=== PATIENT | female | born 1950 | race Caucasian/White ===

== ENCOUNTER 2017-04-25 09:00 | Emergency (ER) | payer MEDICARE, BC ==
[2017-04-25] MEDS ORDERED: EPINEPHrine 1 MG/ML 30 ML MDV IVPUSH ONE ×2 (09:11→09:20)
[2017-04-25] MEDS ORDERED: EPINEPHrine 1:10,000 1 MG/10 ML Syringe IV ONE ×2 (09:11→09:20)
[2017-04-25] MEDS ORDERED: Sodium Chloride 0.9% 300 ML IV ONE (09:12)
[2017-04-25] MEDS ORDERED: Sodium Chloride 0.9% 500 ML IV ONE (09:16)
[2017-04-25] MEDS ORDERED: Sodium Bicarbonate 8.4% 50 MEQ/50 ML Syringe IVPUSH ONE (09:16)
[2017-04-25] MEDS ORDERED: Sodium Bicarbonate 8.4% 50 MEQ/50 ML Syringe IV ONE (09:16)
[2017-04-25] MEDS ORDERED: Lidocaine 4% Top Soln 50 ML Bottle MUCMEM ONE (10:03)
[2017-04-25] MEDS ORDERED: Ketorolac 60 MG/2 ML SDV IM ONE (10:03)
--- NOTE | 2017-04-25 10:34 | EDM.PDOC ---
ED HPI GENERAL MEDICAL PROBLEM - General Chief Complaint: CPR in Progress Stated Complaint: [facility] Time Seen by Provider: 04/25/17 09:05 Source of Information: Reports: EMS Notes Reviewed, Family History Limitations: Reports: Altered Mental Status, Other (pt was intubated and unresponsive. ) - History of Present Illness INITIAL COMMENTS - FREE TEXT/NARRATIVE: pt got up this am well and she was getting breakfast. She went up to the BR and her sig other heard her with some noisy resp. She was found totally unresponsive. He called 911 and pulled her from the BR and started cpr. He thought she looked pinker when the cpr was started. She never did respond to him. Onset: Today, Sudden Duration: Minutes: Location: Reports: Chest Associated Symptoms: Reports: Other (The pt did not complain of any symptoms. This was a sudden arrest. ) - Related Data Allergies Allergy/AdvReac Type Severity Reaction Status Date / Time meperidine HCl [From Demerol] Allergy Itching Verified 12/30/15 11:31 eye drops Allergy Rash Uncoded 12/30/15 11:31 Home Meds: Home Meds Citalopram Hydrobromide [Citalopram HBr] 20 mg PO DAILY 03/23/15 [History] Cyanocobalamin (Vitamin B-12) [Cyanocobalamin Injection] 1,000 mcg IM Q14D 03/23 [History] Levothyroxine Sodium [Tirosint] 100 mcg PO DAILY 03/23/15 [History] Omeprazole [priLOSEC OTC] 20 mg PO DAILY #60 tab.sr 10/09/15 [Rx] Acetaminophen [Tylenol] 650 mg PO DAILY PRN 12/30/15 [History] Citalopram [Citalopram HBr] 20 mg PO DAILY tablet 01/01/16 [Rx] Multivitamin [Multi-Vitamin Daily] 1 each PO BID #0 01/01/16 [Rx] Ondansetron [Zofran ODT] 4 mg PO Q6H PRN #30 tab.dis 01/01/16 [Rx] Acetaminophen [Tylenol] 650 mg PO Q4H PRN #0 tablet 01/02/16 [Rx] Acetaminophen/HYDROcodone [[place] 325-5 MG] 1 - 2 tab PO Q4H PRN #10 tablet 01/01 [Rx] Past Medical History HEENT History: Reports: Impaired Vision, Macular Degeneration Gastrointestinal History: Reports: Other (See Below) Other Gastrointestinal History: black tarry stools x 3 years [employer] History: Reports: Fibroids, Musculoskeletal History: Reports: Arthritis Psychiatric History: Reports: Depression Endocrine/Metabolic History: Reports: Other (See Below) Other Endocrine/Metabolic History: Thyroid disease Hematologic History: Reports: Anemia, B12 Deficiency, Blood Transfusion(s), Iron Deficiency - Infectious Disease History Infectious Disease History: Reports: Chicken Pox, Measles, Mumps - Past Surgical History GI Surgical History: Reports: Appendectomy, Bariatric Procedure, Colonoscopy, EGD, Other (See Below) Female Surgical History: Reports: Hysterectomy, Salpingo-Oophorectomy Social & Family History - Family History Cardiac: Reports: [place] Endocrine/Metabolic: Reports: Diabetes, type II, Hypothyroidism Oncologic: Reports: Breast, Other (See Below) Other Oncologic Family History: bile duct - Tobacco Use Smoking Status *Q: Unknown Ever Smoked Years of Tobacco use: 25 Packs/Tins Daily: 2 Used Tobacco, but Quit: Yes Month Tobacco Last Used: september Second Hand Smoke Exposure: No - Alcohol Use Days Per Week of Alcohol Use: 7 Number of Drinks Per Day: 3 Total Drinks Per Week: 21 - Recreational Drug Use Recreational Drug Use: No ED ROS GENERAL - Review of Systems Review Of Systems: See Below Constitutional: Reports: No Symptoms HEENT: Reports: No Symptoms Respiratory: Reports: No Symptoms Cardiovascular: Reports: No Symptoms, Other ( Pt had a sudden cardiopulmonry arrest while on the tolet stool. ) Endocrine: Reports: No Symptoms GI/Abdominal: Reports: No Symptoms : Reports: No Symptoms Musculoskeletal: Reports: No Symptoms Skin: Reports: No Symptoms Neurological: Reports: Other (pt was totally unresponsive. ) ED EXAM, GENERAL - Physical Exam Exam: See Below Free Text/Narrative:: pt arrived intubated with a earl tube and having cardiac massage with the alexia. She had a rhythm which she was not perfusing with. Her o2 was in the 90s. . Her bp was in the 120 range. Her color looked fair. Exam Limited By: Other (pt was unresponsive.) Course - Orders/Labs/Meds Labs: Laboratory Tests 04/25/17 04/25/17 04/25/17 Range/Units 09:18 09:18 09:18 WBC 7.6 (4.5-11.0) K/uL RBC 4.38 (3.30-5.50) M/uL Hgb 13.8 (12.0-15.0) g/dL Hct 42.3 (36.0-48.0) % MCV 97 (80-98) fL MCH 32 H (27-31) pg MCHC 33 (32-36) % Plt Count 200 (150-400) K/uL Neut % (Auto) 31 L (36-66) % Lymph % (Auto) 62 H (24-44) % [place] % (Auto) 5 (2-6) % Eos % (Auto) 1 L (2-4) % Baso % (Auto) 1 (0-1) % PT (9.5-12.0) sec INR (0.80-1.20) APTT (27.0-36.0) sec Puncture Site Lt radial ABG pH 7.044 L* (7.350-7.450) ABG pCO2 52.6 H (35.0-42.0) mmHg ABG pO2 90.6 (75.0-100.0) mmHg ABG HCO3 13.7 L (22.0-26.0) mmol/L ABG Total CO2 13.5 L (21.0-25.0) mmol/L ABG O2 Saturation 90.3 L (95.0-98.0) % ABG O2 Content 17.4 (15.0-23.0) %vol ABG Base Excess -17.3 mm/L ABG Hemoglobin 13.8 (12.0-16.0) g/dL ABG Oxyhemoglobin 89.8 % ABG Carboxyhemoglobin -0.2 L (0.0-1.6) % ABG Methemoglobin 0.7 % Eric Test Not performed O2 Delivery Device Resuscitation bag Oxygen Flow Rate L Sodium 142 (140-148) mmol/L Potassium 5.0 (3.6-5.2) mmol/L Chloride 108 (100-108) mmol/L Carbon Dioxide 17 L (21-32) mmol/L Anion Gap 22.0 H (5.0-14.0) mmol/L BUN 14 (7-18) mg/dL Creatinine 1.0 (0.6-1.0) mg/dL Est Cr Clr Drug Dosing TNP Estimated GFR (MDRD) 55 L (>60) Glucose 431 H* (74-106) mg/dL Calcium 8.6 (8.5-10.1) mg/dL Total Bilirubin 0.3 (0.2-1.0) mg/dL AST 340 H D (15-37) U/L ALT 238 H (12-78) U/L Alkaline Phosphatase 76 (46-116) U/L Creatine Kinase 199 H (26-192) U/L Troponin I 0.693 H* (0.000-0.056) ng/mL Total Protein 6.2 L (6.4-8.2) g/dL Albumin 2.6 L (3.4-5.0) g/dL Globulin 3.6 H (2.3-3.5) g/dL Albumin/Globulin Ratio 0.7 L (1.2-2.2) 04/25/17 Range/Units 09:18 WBC (4.5-11.0) K/uL RBC (3.30-5.50) M/uL Hgb (12.0-15.0) g/dL Hct (36.0-48.0) % MCV (80-98) fL MCH (27-31) pg MCHC (32-36) % Plt Count (150-400) K/uL Neut % (Auto) (36-66) % Lymph % (Auto) (24-44) % [place] % (Auto) (2-6) % Eos % (Auto) (2-4) % Baso % (Auto) (0-1) % PT 12.0 (9.5-12.0) sec INR 1.12 (0.80-1.20) APTT 38.8 H (27.0-36.0) sec Puncture Site ABG pH (7.350-7.450) ABG pCO2 (35.0-42.0) mmHg ABG pO2 (75.0-100.0) mmHg ABG HCO3 (22.0-26.0) mmol/L ABG Total CO2 (21.0-25.0) mmol/L ABG O2 Saturation (95.0-98.0) % ABG O2 Content (15.0-23.0) %vol ABG Base Excess mm/L ABG Hemoglobin (12.0-16.0) g/dL ABG Oxyhemoglobin % ABG Carboxyhemoglobin (0.0-1.6) % ABG Methemoglobin % Eric Test O2 Delivery Device Oxygen Flow Rate L Sodium (140-148) mmol/L Potassium (3.6-5.2) mmol/L Chloride (100-108) mmol/L Carbon Dioxide (21-32) mmol/L Anion Gap (5.0-14.0) mmol/L BUN (7-18) mg/dL Creatinine (0.6-1.0) mg/dL Est Cr Clr Drug Dosing Estimated GFR (MDRD) (>60) Glucose (74-106) mg/dL Calcium (8.5-10.1) mg/dL Total Bilirubin (0.2-1.0) mg/dL AST (15-37) U/L ALT (12-78) U/L Alkaline Phosphatase (46-116) U/L Creatine Kinase (26-192) U/L Troponin I (0.000-0.056) ng/mL Total Protein (6.4-8.2) g/dL Albumin (3.4-5.0) g/dL Globulin (2.3-3.5) g/dL Albumin/Globulin Ratio (1.2-2.2) Meds: Medications Discontinued Medications Generic Name Dose Route Start Last Admin Trade Name Freq PRN Reason Stop Dose Admin Ketorolac Tromethamine 60 mg 04/25/17 10:03 Toradol IM 04/25/17 10:04 ONETIME ONE Lidocaine HCl 1 ml 04/25/17 10:03 Xylocaine 4% Top Soln MUCMEM 04/25/17 10:04 ONETIME ONE - Re-Assessments/Exams Free Text/Narrative Re-Assessment/Exam: 04/25/17 10:45 pt arrived with a cardiopulmonary arrest. She was intubated with a earl tube and she was having cardiac massage with the alexia. She had a rhythm which she was not perfusing with. She had o2 sats in the low 90s. She was given 2 more boluses of epinephrine, cpr was continued. She was intubated. She was found to have very large dilated pupils. A ways into the code the rt pupil became very large by comparison the the left. She continued not to perfuse with any rhythm she had. She was found to have a ph of 7.001. She was given a amp of bicarb. with no response to the code. a decision was made to stop in the lite of the markedly dilated pupils. Departure - Departure Time of Disposition: 09:25 Disposition: 20 Clinical Impression: Acute [place], Hyperglycemia, Cardiopulmonary arrest Forms: ED Department Discharge Care Plan Goals: transfer to home.
== END 2017-04-25 22:10 | disposition expired ==
LOC: JP.ED 09:00
DX: I46.9 Cardiac arrest, cause unspecified (principal); I21.3 ST elevation (STEMI) myocardial infarction of unspecified site; R73.9 Hyperglycemia, unspecified; M19.90 Unspecified osteoarthritis, unspecified site; F32.9 Major depressive disorder, single episode, unspecified; Z79.899 Other long term (current) drug therapy; Z90.49 Acquired absence of other specified parts of digestive tract; Z98.84 Bariatric surgery status; Z90.710 Acquired absence of both cervix and uterus; Z90.721 Acquired absence of ovaries, unilateral; Z88.8 Allergy status to other drugs, medicaments and biological substances
CPT/HCPCS: 31500; 36415; 36600; 80053; 82550; 82803; 84484; 85025; 85610; 85730; 92950; 96374; 99285; J0171; J7040